=== PATIENT | male | born 1950 | race Caucasian/White ===

== ENCOUNTER 2016-10-19 15:08 | Emergency (ER) | payer OTHER ==
[~2016-10-19 15:08] MED LIST: ALDACTONE25 MG PO; AZOR 5-20 MG T1 EACH PO; CARVEDILOL6.25 MG PO; LIPITOR20 MG PO; LOSARTAN-HCTZ1 EACH PO
[2016-10-19] MEDS ORDERED: ARTHRITIS MED (15:33)
== END 2016-10-19 16:37 | disposition home or self-care (01) ==
LOC: SED 15:08
DX: A49.02 Methicillin resistant Staphylococcus aureus infection, unspecified site (principal); I10 Essential (primary) hypertension
CPT/HCPCS: 99282